=== PATIENT | male | born 1935 | race Caucasian/White ===

== ENCOUNTER 2017-03-16 21:04 | Inpatient (IN) ==
--- NOTE | 2017-03-16 21:49 | Emergency Department Note ---
Disposition Clinical Impression: On rivaroxaban therapy, Hx of bladder cancer Hematuria Qualifiers: Hematuria type: unspecified type Qualified Code(s): R31.9 - Hematuria, unspecified Disposition: Admitted As Inpatient Condition: Fair Time of Disposition: 22:35 Male Urogenital HPI - General Chief complaint: ED Urogenital-Male Stated complaint: hematuria Time Seen by Provider: 03/16/17 21:07 Source: EMS Mode of arrival: ambulatory Limitations: no limitations Nursing Notes Reviewed: Yes Vital Signs Reviewed: Yes - History of Present Illness HPI Narrative: 81-year-old transferred from the [place] currently anticoagulated on Xarelto recently started 10 days ago ofleft-sided pulmonary embolus,is currently complaining of hematuria times one day.Patient is medical histor y ofbladder cancer and carcinoma of the prostate. Denies any dysuria or pain with urination. Patient states he was started on Xarelto about 8 days ago, since that time he is noted no bleeding, sitting started noticing bright red blood is going to bathroom. Denies bleeding from elsewhere, denies any chest pain or shortness of breath currently. Pt Subjective Complaint: other (hematuria) Onset (ago): day(s) Duration: intermittent Location: penis Severity: none Quality: burning Improves with: urination new medication (Xarelto) Denies: discharge, swelling, mass, urinary retention - Related Data Home Medications Medication Instructions Recorded Confirmed Acetaminophen [Tylenol] 500 mg PO Q6HR PRN 03/16/17 03/16/17 Carboxymethylcellulose Sodium 2 drop BOTH EYES Q2H PRN 03/16/17 03/16/17 [Refresh Liquigel] Cetirizine HCl [Zyrtec] 10 mg PO DAILY 03/16/17 03/16/17 Hydrocortisone 1% CREAM [Cortaid] 1 appl TP BID 03/16/17 03/16/17 Lactobacillus Acidophilus/Fos 1 each PO DAILY 03/16/17 03/16/17 [Acidophilus Probiotic Tablet] Megestrol Acetate 20 mg PO BID 03/16/17 03/16/17 Pantoprazole Sodium [Protonix] 40 mg PO DAILY 03/16/17 03/16/17 Rivaroxaban [Xarelto] 15 mg PO BID 03/16/17 03/16/17 Saliva Substitute Combo No.3 3 - 5 spray MM Q6H 03/16/17 03/16/17 [Aquoral] Sennosides/Docusate Sodium [Senna 1 each PO BID 03/16/17 03/16/17 Plus] Allergies Allergy/AdvReac Type Severity Reaction Status Date / Time codeine Allergy Hallucinati Verified 03/16/17 21:16 ng Influenza Virus Vaccines Allergy Cough Verified 03/16/17 21:16 Pneumococcal Vaccine Allergy Cough Verified 03/16/17 21:16 All systems ED: reviewed and negative except as stated. Review of Systems: As Per HPI Constitutional: Denies: fever, chills Eyes: Denies: eye pain ENT ED: Denies: ear pain Cardiovascular: Denies: chest pain Respiratory: Denies: cough Gastrointestinal: Denies: abdominal pain, nausea Genitourinary: Reports: as per HPI, hematuria. Denies: urgency Musculoskeletal: Denies: back pain, neck pain Integumentary: Denies: rash Neurological: Denies: headache, weakness Past Medical History - Past Medical History Attestation: Yes The following information was validated with the patient. Source: patient Medical history: Reports: cancer, hyperlipidemia, pulmonary embolus - Social History Smoking Status: Former smoker Alcohol use: Reports: none Drug use: Reports: none Physical Exam Constitutional: Elderly male in no acute distress vital signs reviewed and wnl Eyes: PERRLA, sclera anicteric ENT & Mouth: MM dry Neck: normal inspection, neck is supple Resp: CTA bilaterally, no resp distress CV: RRR, no m/g/r GI: normal inspection, soft, no guarding or rigidity : normal inspection, uncircumcised Neuro: A&O3, CNII-XII grossly , intact, DRAKE Skin: on limited exam, skin intact with no rashes or lesions - General General appearance: alert, in no apparent distress Course Course Narrative: 81-year-old male with history of bladder cancer and prostate cancer presents with hematuria after recently starting Xarelto, plan is for admission to hospitalist service. Page - Reevaluation(s) Reevaluation #1: Admitted for urology evaluation, admitted to hospitalist service .[facility] accepting Time: 23:10 Vital Signs Temperature 97.7 F 03/16/17 21:07 Pulse Rate 105 03/16/17 21:07 Respiratory Rate 16 03/16/17 21:07 Blood Pressure 154/102 03/16/17 21:07 O2 Sat by Pulse Oximetry 97 03/16/17 21:07 Temperature 98.3 F 03/17/17 00:10 Pulse Rate 85 03/17/17 00:10 Respiratory Rate 16 03/17/17 00:10 Blood Pressure 127/76 03/17/17 00:10 O2 Sat by Pulse Oximetry 97 03/17/17 00:10 Oxygen Delivery Oxygen Delivery Room Air Urogenital-Male - Differential Diagnosis Likely: acute urinary retention - Medical Records Medical records reviewed: Yes I reviewed the patient's medical records. - Lab Data Lab results reviewed: Yes I reviewed the patient's lab results. Lab results narrative: White blood cell 8.9 and hemoglobin 11.7 hematocrit 35.6 platelets 545 AST 114 ALT 62 total bili 0.2 calcium 9.8 mag 2.7 sodium 138 potassium 4.7 chloride 106 bicarbonate 22 glucose 99 BUN 14 creatinine 0.9 5X Urine clear negative nitrite and negative leukocyte esterase 2 white blood cell 133 RBCs and moderate occult blood - Radiology Data Radiology results reviewed: Yes I reviewed the patient's radiology results. CT scan of abdomen and pelvis without contrast shows 4 mm nonobstructive left mid pole stone with no hydronephrosis bilaterally partially does visualized acute appearing fracture of the left posterior eighth rib with possible small left lower lobe pulmonary contusion and pleural effusion Attestation Statement - Attestation Attestation: I examined this patient and my medical decision-making was reviewed with the Resident Physician, Dr. Cuenca. I agree with the documented findings, disposition and treatment plan as described except to the extent set forth below. Patient is a 81-year-old elderly white male who is transferred to our facility from [place] for evaluation of hematuria. Patient has a history of bladder and prostate CA and 9 days ago was diagnosed with a left lower lobe PE and started on Xarelto. In the past 24 hours patient has developed gross hematuria and was seen there for evaluation. Patient has had a full laboratory workup including CAT scan of the abdomen and pelvis which showed a renal stone but no acute ureterolithiasis. No other abnormality was seen except for an incidental finding of a left eighth rib fracture with possible underlying pulmonary contusion. Patient was transferred here because they do not have urology for consultation. Patient arrives hemodynamically stable and in no acute distress on arrival. Patient denies any difficulty urinating, no passing clots, and no straining with urination. Patient denies any fevers or chills, no abdominal pain or flank pain no other associated symptoms. Patient denies any chest pain or pressure or heaviness, no shortness of breath no diaphoresis no syncope or lightheadedness. All of patient's labs and imaging results were sent with him which were all obtained earlier today. Patient did provide a urine sample for us in urine appeared pink in color but no clots or gross blood was seen. At this time we will go ahead and admit the patient for further evaluation and determination of anticoagulation. Case was discussed with the hospitalist to accept the patient for admission.
--- NOTE | 2017-03-16 23:02 | Internal Med History&Physical ---
Addendum entered and electronically signed by Carlos Leonardo DO 03/17/17 01:25: Correct Date of Encounter: 03/16/17 Original Note: <Carlos Leonardo - Last Filed: 03/17/17 01:21> Date of Encounter: 03/17/17 Time of Encounter: 23:01 Assessment and Plan (1) Hematuria Current visit: Yes Status: Acute Patient was transferred to [facility] because [place] did not have urology for consultation. Hemoglobin 11.7, hematocrit 35.6, platelets 545 Urine clear, negative nitrite, and negative leukocyte esterase, 2 white blood cell, 133 RBCs, and moderate occult blood Continue H&H q8h Urology consulted. Qualifiers: Hematuria type: idiopathic Glomerular morphologic changes: unspecified whether glomerular morphologic changes present Qualified Code(s): N02.9 - Recurrent and persistent hematuria with unspecified morphologic changes (2) Pulmonary embolism on left Current visit: Yes Status: Suspected 9 days ago was diagnosed with a left lower lobe PE and started on Xarelto. Uncertain if this is an actual PE given concurrent h/o lung contusion from rib fracture. Will obtain records and images of CTA chest from [place]. Hold anticoagulation at this time due to hematuria (3) On rivaroxaban therapy Current visit: Yes Status: Acute Patient recently started on Xarelto 9 days ago for left-sided pulmonary embolus. Hold anticoagulation at this time due to hematuria (4) Left rib fracture Current visit: Yes Status: Acute He fell and fractured his left rib a few days prior to starting anticoagulation therapy. CT shows acute appearing fracture of the left posterior eighth rib with possible small left lower lobe pulmonary contusion and pleural effusion Continue Tylenol prn pain Qualifiers: Encounter type: initial encounter Rib fracture type: single rib Fracture type: closed Qualified Code(s): S22.32XA - Fracture of one rib, left side, initial encounter for closed fracture (5) Hx of bladder cancer Current visit: Yes Status: Chronic (6) History of prostate cancer Current visit: Yes Status: Chronic (7) DVT prophylaxis Current visit: Yes Status: Acute SCDs. Hold anticoagulation at this time due to hematuria Internal Medicine - H&P: HPI Chief complaint: Blood in urine Admitted From: Home (Seen at [place]) Plans for Post Hospital Care: Home History of present illness: Mr. Taylor is a 81 year old male with a PMH of bladder cancer and prostate cancer who was recently started on Xarelto 9 days ago for left-sided pulmonary embolus. Of note, he fell and fractured his left rib a few days prior to starting anticoagulation therapy. [facility] seeing "about 2 ounces" of bright red blood in urine this morning x2. Nursing also reports seeing blood tinged sputum today. He walks with a cane and was recently discharged home from rehab. He reports last radiation treatment and bladder cauterization was in 2009. Patient denies fever, chills, CP, SOB, ad pain, N/V/D/C, dysuria, urinary retention, or need for blood transfusion in the past. Past Med Surg Social Fam HX - Past Medical History Medical history: asthma, cancer, hyperlipidemia, pulmonary embolus - Past Surgical History Surgical History: other (bladder cauterization) - Social History Smoking Status: Former smoker Alcohol use: none Drug use: none Current living situation: Home Activity Level: Uses cane/walker - Family History Mother Hx Family Cardiac Disorders: Yes ([place]) Internal Medicine - H&P: Meds Acetaminophen [Tylenol] 500 mg PO Q6HR PRN 03/16/17 [History] Carboxymethylcellulose Sodium [Refresh Liquigel] 2 drop BOTH EYES Q2H PRN [History] Cetirizine HCl [Zyrtec] 10 mg PO DAILY 03/16/17 [History] Hydrocortisone 1% CREAM [Cortaid] 1 appl TP BID 03/16/17 [History] Lactobacillus Acidophilus/Fos [Acidophilus Probiotic Tablet] 1 each PO DAILY 08/28 [History] Megestrol Acetate 20 mg PO BID 03/16/17 [History] Pantoprazole Sodium [Protonix] 40 mg PO DAILY 03/16/17 [History] Rivaroxaban [Xarelto] 15 mg PO BID 03/16/17 [History] Saliva Substitute Combo No.3 [Aquoral] 3 - 5 spray MM Q6H 03/16/17 [History] Sennosides/Docusate Sodium [Senna Plus] 1 each PO BID 03/16/17 [History] 3 Allergy/AdvReac Type Severity Reaction Status Date / Time codeine Allergy Hallucinati Verified 03/16/17 21:16 ng Influenza Virus Vaccines Allergy Cough Verified 03/16/17 21:16 Pneumococcal Vaccine Allergy Cough Verified 03/16/17 21:16 All Systems PM: A 10-system review of systems was performed and is negative for pertinent findings except as documented above in the HPI. - Constitutional Constitutional: no chills, no fatigue, no fever(s) - EENT Eyes: no change in vision Nose, mouth and throat: no nasal congestion, no sinus pressure - Cardiovascular Cardiovascular ROS IM: no chest pain, no lightheadedness, no palpitations - Respiratory Respiratory: no cough, no hemoptysis, no chest congestion - Gastrointestinal Gastrointestinal: no abdominal pain, no diarrhea, no hematemesis, no hematochezia, no melena, no nausea, no vomiting - Genitourinary Genitourinary ROS male: hematuria, urinary incontinence (occasional), no dysuria , no urinary frequency - Musculoskeletal Musculoskeletal ROS IM: no back pain, no numbness, no tingling - Integumentary Integumentary IM: no erythema, no rash - Neurological Neurological ROS: no dizziness, no numbness, no tingling - Psychiatric Psychiatric: no anxiety, no depression - Constitutional Vitals: Temp Pulse Resp BP Pulse Ox 97.7 F 105 16 154/102 97 03/16/17 21:07 03/16/17 21:07 03/16/17 21:07 03/16/17 21:07 03/16/17 21:07 General appearance: Present: cooperative, A&O X 3, pleasant, no acute distress, answers questions appropriately Exam: appears younger than stated age - Head Head exam: Present: atraumatic, normal inspection, normocephalic - Eye Eye exam: Present: EOMI, PERRL - ENT ENT exam: Present: mucous membranes moist, normal oropharynx - Neck Neck exam general surgery: Present: normal inspection, supple. Absent: tenderness - Respiratory Respiratory exam: Present: CTAB. Absent: accessory muscle use, decreased breath sounds, rales, respiratory distress, wheezes - Cardiovascular Cardiovascular exam: Present: RRR, +S1, +S2 - GI/Abdominal GI/Abdominal exam: Present: normal bowel sounds, soft, tenderness (mild suprapubic TTP). Absent: distended, firm, guarding - Additional comments: no velazquez - Extremities Exam Extremities exam: Present: warm. Absent: pedal edema, tenderness - Back Exam Back exam: Present: normal inspection. Absent: paraspinal tenderness, vertebral tenderness - Neurological Exam Neurological exam: Present: alert, oriented X3, no focal deficits, strengths equal and symetr throughout. Absent: altered, speech deficit - Psychiatric Psychiatric exam: Present: normal affect, normal mood - Skin Skin exam: Present: dry, intact, normal color, warm Internal Med - H&P Results - Labs Labs: White blood cell 8.9 and hemoglobin 11.7 hematocrit 35.6 platelets 545 AST 114 ALT 62 total bili 0.2 calcium 9.8 mag 2.7 sodium 138 potassium 4.7 chloride 106 bicarbonate 22 BUN 14 creatinine 0.9 glucose 99 Urine clear negative nitrite and negative leukocyte esterase 2 white blood cell 133 RBCs and moderate occult blood - Impressions CT scan of abdomen and pelvis without contrast shows 4 mm nonobstructive left mid pole stone with no hydronephrosis bilaterally partially does visualized acute appearing fracture of the left posterior eighth rib with possible small left lower lobe pulmonary contusion and pleural effusion <Maisha Haro - Last Filed: 03/17/17 03:42> Date of Encounter: 03/17/17 Internal Medicine - H&P: HPI History of present illness: Mr. Taylor is a 81 year old male All Systems PM: A 10-system review of systems was performed and is negative for pertinent findings except as documented above in the HPI. - Constitutional Vitals: Temp Pulse Resp BP Pulse Ox 98.3 F 85 16 127/76 97 03/17/17 00:10 03/17/17 00:10 03/17/17 00:10 03/17/17 00:10 03/17/17 00:10 - Attending Attestation I have personally performed a face to face evaluation on this patient and I discussed the assessment and plan with the Resident. I have reviewed and agree with the documented care plan. History and Exam by me shows: History of present illness: Mr. Taylor is a 81 year old male with a PMH of bladder cancer and prostate cancer who was recently started on Xarelto 9 days ago for left-sided pulmonary embolus. Of note, he fell and fractured his left rib a few days prior to starting anticoagulation therapy. He went to the [place] prior to arrival after seeing "about 2 ounces" of bright red blood in urine this morning x2. Nursing also reports seeing blood tinged sputum today. He walks with a cane and was recently discharged home from rehab. He reports last radiation treatment and bladder cauterization was in 2009. Gen: A, A, O x3 Chest : Diminished BS b/l, no crackles / rales Heart: S1 S2 + RRR No murmurs Ext: No edema / no tenderness - carrie's sign negative a/p 1. Acute gross hematuria due to Xarelto held Xarelto for now cont close monitoring Q8hr Hb /Hct UA- no sign of infection No need of abx Will consult Urology in AM 2. Recent Left side PE 3. Recent fall with Left rib fracture I am not sure wether he had real PE or it was artifact with rib fracture if he did have PE, then is it provoked or unprovoked Also not sure wether they checked for DVT in legs So for now, will obtain medical records from [place], [place] cont holding Xarelto for now
[2017-03-16] MEDS ORDERED: Naloxone 0.4 MG/ML INJ IVP PRN (23:42)
[2017-03-16] MEDS ORDERED: Ondansetron 4 MG/2 ML VIAL IVP PRN (23:42)
[2017-03-16] MEDS ORDERED: Artificial Tears SOLN 15 ML BOTTLE BOTH EYES PRN (23:47)
[2017-03-17] MEDS: 0.9 % Sodium Chloride 1,000 ML IVC SCH ×2 (00:56→11:06)
[2017-03-17 06:50] LABS: INR 2.1; Prothrombin Time 22.9 Seconds (9.4-12.1)
[2017-03-17 07:04] LABS: Alanine Aminotransferase 39 Units/L (0-55); Albumin 2.5 g/dL (3.5-5.0); Albumin/Globulin Ratio 0.5 (1.1-2.2); Alkaline Phosphatase 95 Units/L (38-126); Aspartate Amino Transferase 66 Units/L (5-34); BUN/Creatinine Ratio 18 (6-26); Bilirubin,Total 0.3 mg/dL (0.2-1.2); Blood Urea Nitrogen 15 mg/dL (8-26); Calcium 9.2 mg/dL (8.6-10.8); Carbon Dioxide 23 mEq/L (19-29); Chloride 106 mEq/L (98-109); Globulin 4.8 g/dL (2.4-3.5); Glucose 93 mg/dL (70-99); Osmolality,Calculated 287 (280-300); Potassium 4.2 mEq/L (3.5-4.5); Sodium 138 mEq/L (136-145); Total Protein 7.3 g/dL (6.0-8.3); eGFR For African Americans > 60 (> 60); eGFR For Non-African Americans > 60 (> 60)
[2017-03-17 07:11] LABS: Basophils # 0.1 K/mcL (0.0-0.2); Basophils % 0.9 %; Eosinophils # 0.7 K/mcL (0.0-0.6); Eosinophils % 9.7 %; Hematocrit 32.8 % (37.5-50.1); Hemoglobin 10.4 g/dL (12.9-16.9); Immature Granulocytes % 0.7 % (0-4); Lymphocytes # 1.9 K/mcL (0.6-4.6); Mean Corpuscular HGB Conc 31.7 g/dL (31.6-35.5); Mean Corpuscular Hemoglobin 27.1 pg (28.0-33.3); Mean Corpuscular Volume 85.4 fL (83.0-100.0); Mean Platelet Volume 9.3 fL (9.4-12.4); Monocytes # 0.8 K/mcL (0.0-1.3); Monocytes % 11.4 %; Neutrophils # 3.5 K/mcL (1.6-8.9); Platelet Count 456 K/mcL (140-400); Red Blood Count 3.84 M/mcL (4.19-5.50); Red Cell Distribution Width 13.6 % (11.5-14.5); Segmented Neutrophils % 50.3 %
[2017-03-17] MEDS: Lactobacillus 1 EACH CAP.SPRINK PO SCH (08:24)
[2017-03-17] MEDS: Loratadine 10 MG TABLET PO SCH (08:24)
[2017-03-17] MEDS: Sennosides/Docusate Sodium TABLET PO SCH ×2 (08:25→21:30)
--- NOTE | 2017-03-17 09:18 | Urology - Consult Note ---
Date of Encounter: 03/17/17 Time of Encounter: 09:15 - Assessment and Plan (1) Hematuria Current Visit: Yes Status: Acute Assessment and plan: Hematuria seems to be resolving at this time. Would recommend to confirm whether the patient truly needs to be on anticoagulation. If confirmation of pulmonary embolism is confirmed then okay to resume anticoagulation this time. Patient will need follow-up in my office for cystoscopy. We will start the process of [place] approval for this. Qualifiers: Glomerular morphologic changes: unspecified whether glomerular morphologic changes present Qualified Code(s): N02.9 - Recurrent and persistent hematuria with unspecified morphologic changes (2) History of prostate cancer Current Visit: Yes Status: Chronic Assessment and plan: Will need to obtain last PSA readings this can be done as outpatient. (3) Hx of bladder cancer Current Visit: Yes Status: Chronic Assessment and plan: Questionable history of bladder cancer. We will obtain outside pathology records when patient follows up as outpatient. Urology CN:HPI Consult date: 03/17/17 Reason for consult Urology: Gross Hematuria Requesting physician: Carlos Leonardo History of present illness: Bandar is a 81-year-old male who is admitted secondary to gross hematuria and blood-tinged sputum. Patient was recently started on anticoagulation for possible pulmonary embolism. Patient did have a fall with a fractured 8th rib and subsequent lung contusion. Patient states that he started to develop gross hematuria as well as blood-tinged sputum over the past couple days. His hematuria has resolved. Patient states that he underwent radiation therapy for a diagnosis of prostate cancer around 2009. I do not have the pathology from his prostate cancer. He states his PSAs were stable but I do not have these to review. Patient states that after his radiation therapy he developed cystitis with gross hematuria. He underwent at least one surgery to cauterize bleeding in the bladder. He then underwent hyperbaric oxygen treatment which he states resolved his hematuria. Questionable history of bladder cancer as I have no diagnosis or pathology to confirm this. Past Med Surg Social Fam HX - Past Medical History Medical history: asthma, cancer, hyperlipidemia, pulmonary embolus, other ( prostate cancer) Psychiatric history: no psych history - Past Surgical History Surgical History: other (bladder cauterization) - Social History Smoking Status: Former smoker Smokeless Tobacco Status: No Alcohol use: none Drug use: none - Family History Mother Hx Family Cardiac Disorders: Yes ([place]) Medications and Allergies Acetaminophen [Tylenol] 500 mg PO Q6HR PRN 03/16/17 [History] Carboxymethylcellulose Sodium [Refresh Liquigel] 2 drop BOTH EYES Q2H PRN [History] Cetirizine HCl [Zyrtec] 10 mg PO DAILY 03/16/17 [History] Hydrocortisone 1% CREAM [Cortaid] 1 appl TP BID 03/16/17 [History] Lactobacillus Acidophilus/Fos [Acidophilus Probiotic Tablet] 1 each PO DAILY 08/28 [History] Megestrol Acetate 20 mg PO BID 03/16/17 [History] Pantoprazole Sodium [Protonix] 40 mg PO DAILY 03/16/17 [History] Rivaroxaban [Xarelto] 15 mg PO BID 03/16/17 [History] Saliva Substitute Combo No.3 [Aquoral] 3 - 5 spray MM Q6H 03/16/17 [History] Sennosides/Docusate Sodium [Senna Plus] 1 each PO BID 03/16/17 [History] 3 Allergy/AdvReac Type Severity Reaction Status Date / Time codeine Allergy Hallucinati Verified 03/16/17 21:16 ng Influenza Virus Vaccines Allergy Cough Verified 03/16/17 21:16 Pneumococcal Vaccine Allergy Cough Verified 03/16/17 21:16 Review of Systems - Constitutional chills - EENT Nose, mouth and throat: no dizziness - Cardiovascular no chest pain - Respiratory other (blood in sputum) - Gastrointestinal no abdominal pain - Genitourinary as per HPI - Musculoskeletal no back pain - Integumentary no erythema - Neurological no confusion - Psychiatric no anxiety - Hematologic/Lymphatic no easy bleeding - Allergic/Immunologic no throat swelling Exam Initial Vital Signs Temp Pulse Resp BP Pulse Ox 97.7 F 105 16 154/102 97 03/16/17 21:07 03/16/17 21:07 03/16/17 21:07 03/16/17 21:07 03/16/17 21:07 - General physical appearance Present: well developed - ENT Present: normal nares - Neck Present: no masses - Respiratory Present: normal respiratory effort - Cardiovascular Cardiovascular exam IM: RRR - Abdomen Abdomen: Present: soft - Integumentary Present: no rash - Neurologic Present: normal coordination Urology Results - Labs 03/17/17 06:22 03/17/17 06:22 Abnormal lab results RBC 3.84 M/mcL (4.19-5.50) L 03/17/17 06:22 Hgb 10.4 g/dL (12.9-16.9) L 03/17/17 06:22 Hct 32.8 % (37.5-50.1) L 03/17/17 06:22 MCH 27.1 pg (28.0-33.3) L 03/17/17 06:22 Plt Count 456 K/mcL (140-400) H 03/17/17 06:22 MPV 9.3 fL (9.4-12.4) L 03/17/17 06:22 Eosinophils # 0.7 K/mcL (0.0-0.6) H 03/17/17 06:22 PT 22.9 Seconds (9.4-12.1) H 03/17/17 06:22 APTT 38.0 Seconds (26.0-36.0) H 03/17/17 06:22 AST 66 Units/L (5-34) H 03/17/17 06:22 Albumin 2.5 g/dL (3.5-5.0) L 03/17/17 06:22 Globulin 4.8 g/dL (2.4-3.5) H 03/17/17 06:22 Albumin/Globulin Ratio 0.5 (1.1-2.2) L 03/17/17 06:22 Diabetes panel 03/17/17 Range/Units 06:22 Sodium 138 (136-145) mEq/L Potassium 4.2 (3.5-4.5) mEq/L Chloride 106 (98-109) mEq/L Carbon Dioxide 23 (19-29) mEq/L BUN 15 (8-26) mg/dL Creatinine 0.82 (0.72-1.25) mg/dL Glucose 93 (70-99) mg/dL Calcium 9.2 (8.6-10.8) mg/dL AST 66 H (5-34) Units/L ALT 39 (0-55) Units/L Alkaline Phosphatase 95 (38-126) Units/L Albumin 2.5 L (3.5-5.0) g/dL Calcium panel 03/17/17 Range/Units 06:22 Calcium 9.2 (8.6-10.8) mg/dL Albumin 2.5 L (3.5-5.0) g/dL Pituitary panel 03/17/17 Range/Units 06:22 Sodium 138 (136-145) mEq/L Potassium 4.2 (3.5-4.5) mEq/L Chloride 106 (98-109) mEq/L Carbon Dioxide 23 (19-29) mEq/L BUN 15 (8-26) mg/dL Creatinine 0.82 (0.72-1.25) mg/dL Glucose 93 (70-99) mg/dL Calcium 9.2 (8.6-10.8) mg/dL Adrenal panel 03/17/17 Range/Units 06:22 Sodium 138 (136-145) mEq/L Potassium 4.2 (3.5-4.5) mEq/L Chloride 106 (98-109) mEq/L Carbon Dioxide 23 (19-29) mEq/L BUN 15 (8-26) mg/dL Creatinine 0.82 (0.72-1.25) mg/dL Glucose 93 (70-99) mg/dL Calcium 9.2 (8.6-10.8) mg/dL Total Bilirubin 0.3 (0.2-1.2) mg/dL AST 66 H (5-34) Units/L ALT 39 (0-55) Units/L Alkaline Phosphatase 95 (38-126) Units/L Albumin 2.5 L (3.5-5.0) g/dL All other labs normal. Consult Discharge Plan - Plan [facility] Care Provider[facility] -
[2017-03-17 13:01] LABS: Basophils # 0.1 K/mcL (0.0-0.2); Basophils % 0.8 %; Eosinophils # 0.5 K/mcL (0.0-0.6); Hemoglobin 10.5 g/dL (12.9-16.9); Immature Granulocytes % 0.6 % (0-4); Lymphocytes # 1.7 K/mcL (0.6-4.6); Lymphocytes % 20.2 %; Mean Corpuscular HGB Conc 31.8 g/dL (31.6-35.5); Mean Corpuscular Hemoglobin 27.3 pg (28.0-33.3); Mean Corpuscular Volume 85.7 fL (83.0-100.0); Mean Platelet Volume 9.1 fL (9.4-12.4); Monocytes # 0.8 K/mcL (0.0-1.3); Monocytes % 9.3 %; Neutrophils # 5.2 K/mcL (1.6-8.9); Platelet Count 445 K/mcL (140-400); Red Blood Count 3.85 M/mcL (4.19-5.50); Red Cell Distribution Width 13.6 % (11.5-14.5); Segmented Neutrophils % 63.1 %
--- NOTE | 2017-03-17 16:53 | Internal Med Progress Note ---
Date of Encounter: 03/17/17 Time of Encounter: 13:00 - Assessment and plan (1) Hematuria Current Visit: Yes Status: Acute Assessment and plan: Patient has history of prostate and bladder cancer, currently in remission according to him. He was recently started on Xarelto due to diagnosis of PE and developed an episode of gross hematuria yesterday along with some blood- tinged sputum. Anticoagulation has been held since admission. Hematuria is currently clearing up. Hemoglobin noted to be stable. Urology consult appreciated, recommend outpatient follow-up for cystoscopy. Agreeable to restarting anticoagulation if necessary. Qualifiers: Hematuria type: idiopathic Glomerular morphologic changes: unspecified whether glomerular morphologic changes present Qualified Code(s): N02.9 - Recurrent and persistent hematuria with unspecified morphologic changes (2) Pulmonary embolism Current Visit: Yes Status: Acute Assessment and plan: CT angiogram of chest report obtained from [facility] in [place], and reviewed- shows bilateral lower segmental and global for pulmonary emboli, left- sided pleural effusion and bibasal infiltrates/atelectasis-could be pneumonia or pulmonary infarcts. Patient is noted to be slightly tachycardic. We will restart anticoagulation with Xarelto. Continue to monitor hemoglobin and for signs of bleeding closely. Qualifiers: Pulmonary embolism type: other Chronicity: acute Acute cor pulmonale presence: without acute cor pulmonale Qualified Code(s): I26.99 - Other pulmonary embolism without acute cor pulmonale (3) Hx of bladder cancer Current Visit: Yes Status: Chronic (4) Left rib fracture Current Visit: Yes Status: Acute Assessment and plan: Status post mechanical fall a few days back. Pain control with when necessary oxycodone. Physical and occupational physical and occupational therapy evaluation noted, recommend placement in extended care facility. access services librarian consult. Qualifiers: Encounter type: initial encounter Rib fracture type: single rib Fracture type: closed Qualified Code(s): S22.32XA - Fracture of one rib, left side, initial encounter for closed fracture (5) History of prostate cancer Current Visit: Yes Status: Chronic - Subjective Interval history: Reports feeling well. Complains of left shoulder and arm pain. No chest pain, dyspnea, palpitations. - Constitutional Vitals: Temp Pulse Resp BP Pulse Ox 97.6 F 99 16 116/71 96 03/17/17 14:59 03/17/17 14:59 03/17/17 14:59 03/17/17 14:59 03/17/17 14:59 General appearance: Present: cooperative, A&O X 3, answers questions appropriately - Respiratory Respiratory exam: Present: decreased breath sounds (Slightly decreased at left base), CTAB. Absent: accessory muscle use, rales, rhonchi, wheezes - Cardiovascular Cardiovascular exam: Present: RRR, +S1, +S2, tachycardia. Absent: diastolic murmur, gallop, rubs, systolic murmur - GI/Abdominal GI/Abdominal exam: Present: normal bowel sounds, soft, no peritoneal signs. Absent: distended, tenderness - Extremities Exam Extremities exam: Present: full ROM, warm, radial pulses palpable and symmetrical. Absent: calf tenderness, cyanotic, pedal edema - Neurological Exam Neurological exam: Present: CN II-XII intact, oriented X3, no focal deficits. Absent: pronater drift, facial droop, speech deficit Internal Medicine: Result - Labs CBC & Chem 7: 03/17/17 12:45 03/17/17 06:22 Labs: Short CBC 03/17/17 03/17/17 Range/Units 06:22 12:45 WBC 7.0 8.3 (4.3-11.1) K/mcL Hgb 10.4 L 10.5 L (12.9-16.9) g/dL Hct 32.8 L 33.0 L (37.5-50.1) % Plt Count 456 H 445 H (140-400) K/mcL Neutrophils # 3.5 5.2 (1.6-8.9) K/mcL BMP 03/17/17 06:22 Sodium 138 Potassium 4.2 Chloride 106 Carbon Dioxide 23 BUN 15 Creatinine 0.82 Glucose 93 Calcium 9.2 Liver Function 03/17/17 Range/Units 06:22 Total Bilirubin 0.3 (0.2-1.2) mg/dL AST 66 H (5-34) Units/L ALT 39 (0-55) Units/L Alkaline Phosphatase 95 (38-126) Units/L Albumin 2.5 L (3.5-5.0) g/dL - ABG Interpretation ABG results: PT/INR, D-dimer PT 22.9 Seconds (9.4-12.1) H 03/17/17 06:22 Consult Discharge Plan - Plan [facility] Care Provider[facility] -
[2017-03-17 21:12] LABS: Basophils % 0.5 %; Eosinophils # 0.7 K/mcL (0.0-0.6); Eosinophils % 8.7 %; Hematocrit 31.9 % (37.5-50.1); Hemoglobin 10.2 g/dL (12.9-16.9); Immature Granulocytes % 0.6 % (0-4); Immature Platelets 1.9 % (1.1-6.1); Lymphocytes % 24.2 %; Mean Corpuscular Hemoglobin 27.4 pg (28.0-33.3); Mean Corpuscular Volume 85.8 fL (83.0-100.0); Mean Platelet Volume 9.1 fL (9.4-12.4); Monocytes % 11.5 %; Neutrophils # 4.6 K/mcL (1.6-8.9); Platelet Count 475 K/mcL (140-400); Red Blood Count 3.72 M/mcL (4.19-5.50); Red Cell Distribution Width 13.4 % (11.5-14.5); Segmented Neutrophils % 54.5 %
[2017-03-17] MEDS: *HR* Rivaroxaban 15 MG TABLET PO SCH (21:30)
[2017-03-18 05:04] LABS: Basophils % 0.5 %; Eosinophils # 0.7 K/mcL (0.0-0.6); Eosinophils % 9.1 %; Hematocrit 32.5 % (37.5-50.1); Hemoglobin 10.5 g/dL (12.9-16.9); Immature Granulocytes % 0.5 % (0-4); Lymphocytes # 1.8 K/mcL (0.6-4.6); Lymphocytes % 23.3 %; Mean Corpuscular HGB Conc 32.3 g/dL (31.6-35.5); Mean Corpuscular Hemoglobin 27.3 pg (28.0-33.3); Mean Corpuscular Volume 84.4 fL (83.0-100.0); Mean Platelet Volume 9.3 fL (9.4-12.4); Monocytes # 0.9 K/mcL (0.0-1.3); Monocytes % 10.8 %; Neutrophils # 4.4 K/mcL (1.6-8.9); Platelet Count 476 K/mcL (140-400); Red Blood Count 3.85 M/mcL (4.19-5.50); Red Cell Distribution Width 13.5 % (11.5-14.5); Segmented Neutrophils % 55.8 %
[2017-03-18] MEDS: Lactobacillus 1 EACH CAP.SPRINK PO SCH (09:56)
[2017-03-18] MEDS: *HR* Rivaroxaban 15 MG TABLET PO SCH (09:56)
[2017-03-18] MEDS: Sennosides/Docusate Sodium TABLET PO SCH (09:56)
[2017-03-18] MEDS: Loratadine 10 MG TABLET PO SCH (09:57)
[2017-03-18 11:27] VITALS: BP 149/83
[2017-03-18 11:49] LABS: Basophils % 0.5 %; Eosinophils # 0.6 K/mcL (0.0-0.6); Eosinophils % 6.8 %; Hematocrit 32.8 % (37.5-50.1); Hemoglobin 10.6 g/dL (12.9-16.9); Immature Granulocytes % 0.4 % (0-4); Lymphocytes # 1.7 K/mcL (0.6-4.6); Lymphocytes % 20.5 %; Mean Corpuscular HGB Conc 32.3 g/dL (31.6-35.5); Mean Corpuscular Hemoglobin 27.3 pg (28.0-33.3); Mean Corpuscular Volume 84.5 fL (83.0-100.0); Mean Platelet Volume 8.9 fL (9.4-12.4); Monocytes # 0.8 K/mcL (0.0-1.3); Monocytes % 9.3 %; Neutrophils # 5.2 K/mcL (1.6-8.9); Platelet Count 445 K/mcL (140-400); Red Blood Count 3.88 M/mcL (4.19-5.50); Red Cell Distribution Width 13.4 % (11.5-14.5); Segmented Neutrophils % 62.5 %
--- NOTE | 2017-03-18 13:41 | Discharge Summary ---
Date of Encounter: 03/18/17 Time of Encounter: 13:38 - Discharge Diagnosis (1) Hematuria Priority: Primary Status: Acute Qualifiers: Hematuria type: gross Qualified Code(s): R31.0 - Gross hematuria (2) Pulmonary embolism Priority: Primary Status: Acute Qualifiers: Pulmonary embolism type: other Chronicity: acute Acute cor pulmonale presence: without acute cor pulmonale Qualified Code(s): I26.99 - Other pulmonary embolism without acute cor pulmonale (3) Hx of bladder cancer Priority: Secondary Status: Chronic (4) Left rib fracture Priority: Primary Status: Acute Qualifiers: Encounter type: initial encounter Rib fracture type: single rib Fracture type: closed Qualified Code(s): S22.32XA - Fracture of one rib, left side, initial encounter for closed fracture (5) History of prostate cancer Priority: Secondary Status: Chronic - Discharge Medications Home Medications: Acetaminophen [Tylenol] 500 mg PO Q6HR PRN 03/16/17 [History] Carboxymethylcellulose Sodium [Refresh Liquigel] 2 drop BOTH EYES Q2H PRN [History] Cetirizine HCl [Zyrtec] 10 mg PO DAILY 03/16/17 [History] Hydrocortisone 1% CREAM [Cortaid] 1 appl TP BID 03/16/17 [History] Lactobacillus Acidophilus/Fos [Acidophilus Probiotic Tablet] 1 each PO DAILY 08/28 [History] Megestrol Acetate 20 mg PO BID 03/16/17 [History] Pantoprazole Sodium [Protonix] 40 mg PO DAILY 03/16/17 [History] Rivaroxaban [Xarelto] 15 mg PO BID 03/16/17 [History] Saliva Substitute Combo No.3 [Aquoral] 3 - 5 spray MM Q6H 03/16/17 [History] Sennosides/Docusate Sodium [Senna Plus] 1 each PO BID 03/16/17 [History] Allergies/Adverse Reactions: 3 Allergy/AdvReac Type Severity Reaction Status Date / Time codeine Allergy Hallucinati Verified 03/16/17 21:16 ng Influenza Virus Vaccines Allergy Cough Verified 03/16/17 21:16 Pneumococcal Vaccine Allergy Cough Verified 03/16/17 21:16 Date of admission: 03/16/17 22:59 [facility] care physician: [facility] Consults: 03/17/17 00:51 Consult to Physical Therapy [CONS] Routine Comment: Evaluate, develop and implement POC Reason for Consult: falls OT [Consult to Occupational Therapy] [CONS] Routine Comment: Evaluate, develop and implement POC Reason for Consult: falls 03/17/17 00:52 Consult to Urology [CONS] Routine Consulting Provider: Francine Rockwell Reason for Consult: Hematuria, h/o bladder/ prostate cancer Call Completed: No 03/17/17 13:46 Consult to Acetylene Torch Burner [CONS] Routine Reason for SW Consult: PT/OT recommends ECF Discharging clinician: Palak Chavira Anticipated date of discharge: 03/18/17 - Patient Status Disposition: Home, Self-Care Condition: Fair Functional capacity at discharge: independent ambulation Overall status at discharge: patient is progressing back to baseline - Discharge Instructions Instructions: Pulmonary Embolism (DC) Follow [facility] With: [facility] [[facility] Care Provider[facility] - 03/30/17 1:15 pm Additional Instructions: F/up with PCP at [facility] in 1-2 weeks - Diet and Activity Activity: resume usual activities as tolerated Diet: low fat, low cholesterol, low salt diet Hospital course: Mr. Taylor is a 81 year old male with history of bladder and prostate cancer, recently diagnosed with pulmonary embolism and started on anticoagulation, was admitted to our hospital with hematuria. Patient's hemoglobin remained stable and hematuria gradually resolved. He was evaluated by urology and cleared for discharge with outpatient follow-up for possible cystoscopy. Records from [facility], where the patient was admitted and diagnosed with pulmonary embolism, will reviewed. CT angiogram of chest shows bilateral lower lobar and segmental pulmonary emboli. He is being restarted on anticoagulation with Xarelto and and his hemoglobin remained stable. Physical and occupation therapy evaluation was done and recommended placement in extended care facility for continued rehabilitation, however patient declined placement and home health services, since he has enough support at home. He is otherwise medically stable for discharge. - Time Spent with Patient Total time spent providing and/or coordinating discharge services: Greater than 30 minutes (40 min) - Constitutional Vitals: Temp Pulse Resp BP Pulse Ox 97.3 F L 100 18 149/83 96 03/18/17 11:25 03/18/17 11:25 03/18/17 11:25 03/18/17 11:25 03/18/17 11:25 General appearance: Present: cooperative, A&O X 3, answers questions appropriately - Respiratory Respiratory exam: Present: CTAB. Absent: accessory muscle use, rales, rhonchi, wheezes - Cardiovascular Cardiovascular exam: Present: RRR, +S1, +S2, tachycardia. Absent: diastolic murmur, gallop, rubs, systolic murmur
== END 2017-03-18 15:06 | disposition home or self-care (01) | DRG 698 ==
LOC: EMEROO 21:04 → 3BNU 21:04 → SUATTDRO 22:59 → OBSVTOIN 22:59 → 3BNU 23:18
PROVIDERS: ADMIT Family Medicine; ATTEND Internal Medicine

== ENCOUNTER 2017-09-22 18:06 | Inpatient (IN) ==
--- NOTE | 2017-09-22 18:16 | Emergency Department Note ---
Disposition Clinical Impression: Deep vein thrombosis (DVT) of left lower extremity Qualifiers: Affected thrombotic vein of extremity: femoral Chronicity: acute Qualified Code (s): I82.412 - Acute embolism and thrombosis of left femoral vein Disposition: Admitted As Inpatient Condition: Good Time of Disposition: 19:23 Extremity Problem HPI - General Chief complaint: ED Extremity Problem,Nontraumatic Stated complaint: right LE DVT Time Seen by Provider: 09/22/17 18:13 Source: patient, EMS Mode of arrival: EMS Limitations: no limitations Nursing Notes Reviewed: Yes Vital Signs Reviewed: Yes - History of Present Illness HPI Narrative: Patient is an 82-year-old male with past medical history of previous lower extremity DVT, previous PE, Currently on xarelto for anticoagulation. [facility] due to concern for left lower extremity DVT, recommended eval by vascular for IVC filter. The patient says that he has had swelling of the left lower extremity for the past 6 or 7 months. He presented to [place] urgent care today and had ultrasounds of bilateral lower extremities. Ultrasound of the right lower showed a showed no evidence of DVT. Left leg showed evidence of left femoral, left popliteal and left posterior tibial DVT. Patient was transferred here for vascular consult for possible IVC filter consideration. Otherwise, the patient is denying any other chest pain, shortness breath, nausea, vomiting, fevers, abdominal pain, any other injuries or falls. He says that he has not missed any of his xarelto doses of anticoagulation medications. Pain Scale: 0 - Related Data Home Medications Medication Instructions Recorded Confirmed Sennosides/Docusate Sodium [Senna 1 each PO BID PRN 03/16/17 09/22/17 Plus] Acetaminophen [Tylenol] 975 mg PO Q6H PRN 09/22/17 09/22/17 Capsaicin 0.025% [Trixaicin] 1 appl TP BID PRN 09/22/17 09/22/17 Meclizine [Antivert] 12.5 mg PO Q6H PRN 09/22/17 09/22/17 Rivaroxaban [Xarelto] 20 mg PO DAILY 09/22/17 09/22/17 Allergies Allergy/AdvReac Type Severity Reaction Status Date / Time codeine Allergy Hallucinati Verified 09/22/17 19:34 ng Influenza Virus Vaccines Allergy Cough Verified 09/22/17 19:34 Pneumococcal Vaccine Allergy Cough Verified 09/22/17 19:34 All systems ED: reviewed and negative except as stated. Constitutional: Denies: fever Cardiovascular: Denies: chest pain Respiratory: Denies: dyspnea Gastrointestinal: Denies: abdominal pain, nausea, vomiting, diarrhea Genitourinary: Denies: urgency, dysuria Integumentary: Denies: rash Neurological: Denies: headache, weakness, numbness, paresthesias Past Medical History - Past Medical History Attestation: Yes The following information was validated with the patient. Source: patient Medical history: Reports: asthma, cancer, DVT, hyperlipidemia, pulmonary embolus , other Surgical history: Reports: other (bladder cauterization) Psychiatric history: Reports: no psych history - Social History Smoking Status: Former smoker Smokeless Tobacco Status: No Alcohol use: Reports: none Drug use: Reports: none Physical Exam - General Limitations: no limitations General appearance: alert, in no apparent distress - Head Head exam: atraumatic, normocephalic, normal inspection - Eye Eye exam: Present: normal appearance, PERRL, EOMI - ENT ENT exam: normal exam, normal oropharynx, mucous membranes moist - Neck Neck exam: Present: normal inspection, full ROM, trachea midline - Chest Chest inspection: Present: normal inspection, symmetric chest wall rise - Respiratory Respiratory exam: Present: normal lung sounds bilaterally - Cardiovascular Cardiovascular exam: Present: regular rate, normal rhythm, normal heart sounds - Abdominal Exam Abdominal exam: Present: soft, Non-Tender. Absent: tenderness, distention, guarding, rebound, rigidity - Extremities Exam Extremities exam: Present: other (Significant swelling of the left calf compared to the right lower extremity, tenderness to palpation of left calf; good perfusion distally, no discoloration toes, no signs of ulceration.) - Neurological Exam Neurological exam: Present: alert, oriented X3. Absent: motor sensory deficit - Psychiatric Psychiatric exam: Present: normal affect, normal mood - Skin Skin exam: Present: warm, dry, intact, normal color Course Course Narrative: Oxygen was within normal limits on room air, 97%. Patient has no chest pain or shortness of breath, no further workup for his PE deemed necessary at this time. Patient's left lower extremity femoral, popliteal, posterior tibial DVT despite being on xarelto daily without any missed doses. I contacted Dr. Alaniz with vascular and he recommended that we admit the patient on a heparin drip. It is a recommended that the patient receive hematology/oncology consult once the patient is admitted to discuss further DVT despite anticoagulation. Patient ready had basic blood work drawn at outside facility. Basic blood work on CBC shows a hemoglobin of 10.9, near baseline for the patient. BMP shows no major abnormalities, creatinine 0.95, GFR greater than 60. AST mildly elevated at 64. 19:[address] Pizarro, patient started on heparin drip. Vital Signs Temperature 0 F L 09/22/17 18:10 Pulse Rate 0 09/22/17 18:10 Respiratory Rate 0 09/22/17 18:10 Blood Pressure 0/0 09/22/17 18:10 O2 Sat by Pulse Oximetry 0 09/22/17 18:10 Temperature 97.7 F 09/22/17 22:40 Pulse Rate 90 09/22/17 22:40 Respiratory Rate 18 09/22/17 22:40 Blood Pressure 163/90 09/22/17 22:40 O2 Sat by Pulse Oximetry 98 09/22/17 22:40 Oxygen Delivery Oxygen Delivery Room Air Extremity Problem, Nontraumati - MDM Narrative Medical decision making narrative: Oxygen was within normal limits on room air, 97%. Patient has no chest pain or shortness of breath, no further workup for his PE deemed necessary at this time. Patient's left lower extremity femoral, popliteal, posterior tibial DVT despite being on xarelto daily without any missed doses. I contacted Dr. Alaniz with vascular and he recommended that we admit the patient on a heparin drip. It is a recommended that the patient receive hematology/oncology consult once the patient is admitted to discuss further DVT despite anticoagulation. Patient ready had basic blood work drawn at outside facility. Basic blood work on CBC shows a hemoglobin of 10.9, near baseline for the patient. BMP shows no major abnormalities, creatinine 0.95, GFR greater than 60. AST mildly elevated at 64. 19:[address] Pizarro, patient started on heparin drip. - Medical Records Medical records reviewed: Yes I reviewed the patient's medical records. - Lab Data Lab results reviewed: Yes I reviewed the patient's lab results. Result diagrams: 09/22/17 18:48 Lab Results 09/22/17 09/22/17 Range/Units 18:48 18:48 WBC 7.1 (4.3-11.1) K/mcL RBC 3.74 L (4.19-5.50) M/mcL Hgb 10.7 L (12.9-16.9) g/dL Hct 33.1 L (37.5-50.1) % MCV 88.5 (83.0-100.0) fL MCH 28.6 (28.0-33.3) pg MCHC 32.3 (31.6-35.5) g/dL RDW 14.6 H (11.5-14.5) % Plt Count 277 (140-400) K/mcL MPV 9.5 (9.4-12.4) fL PT 17.6 H (9.4-12.1) Seconds INR 1.6 APTT 34.0 (26.0-36.0) Seconds - Radiology Data Radiology results reviewed: Yes I reviewed the patient's radiology results. [email or web address] - Laura Situation: Demographics, MOA Background: Presenting Complaint, Relevant PMH, Meds, & Allergies Assessment: Vital Signs, Course and respsone to treatment, Exam Concerns, Patient/Family Expectation, Pertinant Lab Results Recommendation: Barrier(s) to disposition, Recommendation based on pending studies, treatments, or consults [email or web address] Report Given to: Dr. Juarez Sanchez Repor Time: 19:24 Attestation Statement - Attestation Attestation: I examined this patient and my medical decision-making was reviewed with the Resident Physician. I agree with the documented findings, disposition and treatment plan as described except to the extent set forth below. Findings consistent with DVT in the setting of current anticoagulation use. Discussed case with on-call vascular surgeon, will heparinized, admitted for hypercoagulable workup and possible need for filter placement.
[2017-09-22] MEDS ORDERED: *HR* Heparin 5,000 UNIT/ML VIAL IVP ONE (18:34)
[2017-09-22] MEDS ORDERED: *HR* Heparin 5,000 UNIT/ML VIAL IVP PRN ×2 (18:34)
[2017-09-22 19:06] LABS: INR 1.6; Prothrombin Time 17.6 Seconds (9.4-12.1)
[2017-09-22 19:16] LABS: Hematocrit 33.1 % (37.5-50.1); Hemoglobin 10.7 g/dL (12.9-16.9); Mean Corpuscular HGB Conc 32.3 g/dL (31.6-35.5); Mean Corpuscular Hemoglobin 28.6 pg (28.0-33.3); Mean Corpuscular Volume 88.5 fL (83.0-100.0); Mean Platelet Volume 9.5 fL (9.4-12.4); Platelet Count 277 K/mcL (140-400); Red Blood Count 3.74 M/mcL (4.19-5.50); Red Cell Distribution Width 14.6 % (11.5-14.5)
[2017-09-22] MEDS: Heparin 25,000 UNIT/500 ML D5W 25,000 UNIT/500 ML BAG IVC SCH (20:27)
[2017-09-22] MEDS ORDERED: Naloxone 0.4 MG/ML INJ IVP PRN (21:12)
[2017-09-22] MEDS ORDERED: Ketorolac 15 MG/ML VIAL IVP PRN (21:18)
[2017-09-22] MEDS: Sennosides/Docusate Sodium TABLET PO PRN (23:41)
--- NOTE | 2017-09-22 23:43 | Internal Med History&Physical ---
Date of Encounter: 09/22/17 Time of Encounter: 20:00 Internal Medicine - H&P: HPI Chief complaint: Bilateral leg swelling and pain Admitted From: Home Plans for Post Hospital Care: Home History of present illness: Mr. Taylor is a 82 year old male transferred from [place] to our emergency room for bilateral leg swelling and pain for about 5 weeks. Past medical history is significant for vertigo, sinusitis, on chronic xarelto for PE since 8 months ago , bladder cancer, prostate cancer. Patient said he has a fall 5 weeks ago which caused left-sided rib fracture. Patient denies immobilization. Patient has bilateral leg swelling and calf pain. He went to see in [place] [facility]. He was ordered bilateral venous Doppler and shows left side DVT. Patient said he started xarelto since 8 months ago because of "left rib cage clotting" (old record on last adm shows PE) . Patient denies shortness of breath or chest pain this time. He was transferred to our hospital for possible IVC filter because he developed DVT although on anticoagulation. Vascular surgeon counseled by ER doctor, recommend to start heparin drip and will see patient tomorrow. Vascular surgeon also recommend oncology consult for further management. Patient was admitted for acute left LE DVT. Past Med Surg Social Fam HX - Past Medical History Medical history: asthma, cancer, DVT, hyperlipidemia, pulmonary embolus, other Psychiatric history: no psych history - Past Surgical History Surgical History: other (bladder cauterization) - Social History Smoking Status: Former smoker Smokeless Tobacco Status: No Alcohol use: none Drug use: none - Family History Mother Hx Family Cardiac Disorders: Yes ([place]) Internal Medicine - H&P: Meds Sennosides/Docusate Sodium [Senna Plus] 1 each PO BID PRN 03/16/17 [History] Acetaminophen [Tylenol] 975 mg PO Q6H PRN 09/22/17 [History] Capsaicin 0.025% [Trixaicin] 1 appl TP BID PRN 09/22/17 [History] Meclizine [Antivert] 12.5 mg PO Q6H PRN 09/22/17 [History] Rivaroxaban [Xarelto] 20 mg PO DAILY 09/22/17 [History] 3 Allergy/AdvReac Type Severity Reaction Status Date / Time codeine Allergy Hallucinati Verified 09/22/17 19:34 ng Influenza Virus Vaccines Allergy Cough Verified 09/22/17 19:34 Pneumococcal Vaccine Allergy Cough Verified 09/22/17 19:34 All Systems PM: A 10-system review of systems was performed and is negative for pertinent findings except as documented above in the HPI. - Constitutional Vitals: Temp Pulse Resp BP Pulse Ox 97.7 F 90 18 163/90 98 09/22/17 22:40 09/22/17 22:40 09/22/17 22:40 09/22/17 22:40 09/22/17 22:40 General appearance: Present: A&O X 3, no acute distress, answers questions appropriately - Head Head exam: Present: atraumatic, normocephalic - Eye Eye exam: Present: PERRL, conjuntiva pink, sclera anicteric Pupils: Present: PERRL - Neck Neck exam general surgery: Present: supple, trachea midline. Absent: lymphadenopathy - Respiratory Respiratory exam: Present: CTAB. Absent: accessory muscle use, rales, rhonchi, wheezes - Cardiovascular Cardiovascular exam: Present: RRR, +S1, +S2. Absent: diastolic murmur, gallop, rubs, systolic murmur - GI/Abdominal GI/Abdominal exam: Present: normal bowel sounds, soft, no peritoneal signs. Absent: distended, tenderness - Extremities Exam Extremities exam: Present: calf tenderness (Bilaterally), pedal edema ( Bilaterally), warm, radial pulses palpable and symmetrical. Absent: cyanotic - Neurological Exam Neurological exam: Present: CN II-XII intact, oriented X3, no focal deficits. Absent: pronater drift, facial droop, speech deficit - Skin Skin exam: Present: dry, intact Internal Med - H&P Results - Labs CBC & Chem 7: 09/22/17 18:48 - Assessment and plan (1) Deep vein thrombosis (DVT) of left lower extremity Current Visit: Yes Status: Acute Assessment and plan: US Doppler in the shows left side acute DVT. Patient is on anticoagulation with xarelto. - Place patient on heparin drip - Consult vascular surgery and oncology for further management Qualifiers: Affected thrombotic vein of extremity: femoral Chronicity: acute Qualified Code(s): I82.412 - Acute embolism and thrombosis of left femoral vein (2) DVT prophylaxis Current Visit: No Status: Acute Assessment and plan: On heparin drip (3) On rivaroxaban therapy Current Visit: No Status: Acute Assessment and plan: For previous PE (4) Pulmonary embolism Current Visit: No Status: Acute Assessment and plan: Pt was placed on xarelto Qualifiers: Pulmonary embolism type: other Chronicity: chronic Acute cor pulmonale presence: without acute cor pulmonale Qualified Code(s): 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
[2017-09-23 02:56] LABS: Basophils # 0.1 K/mcL (0.0-0.2); Basophils % 0.7 %; Eosinophils # 0.4 K/mcL (0.0-0.6); Eosinophils % 5.7 %; Hematocrit 27.7 % (37.5-50.1); Hemoglobin 9.1 g/dL (12.9-16.9); Immature Granulocytes % 0.4 % (0-4); Lymphocytes # 1.8 K/mcL (0.6-4.6); Lymphocytes % 26.5 %; Mean Corpuscular HGB Conc 32.9 g/dL (31.6-35.5); Mean Corpuscular Hemoglobin 28.8 pg (28.0-33.3); Mean Corpuscular Volume 87.7 fL (83.0-100.0); Mean Platelet Volume 9.6 fL (9.4-12.4); Monocytes # 0.9 K/mcL (0.0-1.3); Monocytes % 13.4 %; Neutrophils # 3.6 K/mcL (1.6-8.9); Platelet Count 238 K/mcL (140-400); Red Blood Count 3.16 M/mcL (4.19-5.50); Red Cell Distribution Width 14.5 % (11.5-14.5); Segmented Neutrophils % 53.3 %
[2017-09-23 03:14] LABS: BUN/Creatinine Ratio 23 (6-26); Blood Urea Nitrogen 21 mg/dL (8-23); Calcium 8.7 mg/dL (8.6-10.3); Carbon Dioxide 23 mEq/L (23-29); Chloride 110 mEq/L (98-107); Glucose 109 mg/dL (70-105); Osmolality,Calculated 290 (280-300); Potassium 4.2 mEq/L (3.5-5.1); Sodium 138 mEq/L (136-145); eGFR For African Americans > 60 (> 60); eGFR For Non-African Americans > 60 (> 60)
[2017-09-23 13:42] LABS: INR 1.3; Prothrombin Time 13.6 Seconds (9.4-12.1)
--- NOTE | 2017-09-23 14:57 | Vascular/Endovasc Consult Note ---
Date of Encounter: 09/23/17 Time of Encounter: 08:00 Assessment and Plan (1) On rivaroxaban therapy Current Visit: Yes Status: Acute Patient demonstrates failure of Xarleto therapy for DVT treatment with new onset left lower extremity femoral popliteal DVT. Because of the failure of anticoagulation the patient was recommended to undergo IVC filter placement. In addition it was suggested that the patient be seen by hematology for recommendations as to the preferred method of anticoagulation post-IVC filter placement. The patient was placed on IV heparin beginning last night at my recommendation. (2) Pulmonary embolism on left Current Visit: No Status: Suspected History of previous pulmonary embolism (3) Deep vein thrombosis (DVT) of left lower extremity Current Visit: Yes Status: Acute New-onset left lower extremity DVT despite ongoing Xarleto therapy. Qualifiers: Affected thrombotic vein of extremity: femoral Chronicity: acute Qualified Code(s): I82.412 - Acute embolism and thrombosis of left femoral vein - History of Present Illness Consult date: 09/23/17 Consult reason: Left lower extremity acute DVT on Xarleto therapy Chief complaint: Left lower extremity swelling History of present illness: Mr. Taylor is a 82 year old male Who was admitted via the ER last night. He was sent over from the [facility]. The patient had left lower extremity swelling. A duplex scan was performed that the [facility] which demonstrated an acute femoral popliteal DVT. Patient was diagnosed as having a right lower extremity DVT some months ago as well as a left ulnar embolism. He was prescribed several toe. On review with the patient he insists that he has been taking his Xarleto on a daily basis as prescribed. He denies missing a day of the Xarleto therapy. Because of this the patient was asked to be seen by vascular surgery for failure of anticoagulation for an IVC filter placement. Past Med Surg Social Fam HX - Past Medical History Medical history: asthma, cancer, DVT, hyperlipidemia, pulmonary embolus, other Psychiatric history: no psych history - Past Surgical History Surgical History: other (bladder cauterization) - Social History Smoking Status: Former smoker Smokeless Tobacco Status: No Alcohol use: none Drug use: none - Family History Mother Hx Family Cardiac Disorders: Yes ([place]) Medications and Allergies Sennosides/Docusate Sodium [Senna Plus] 1 each PO BID PRN 03/16/17 [History] Acetaminophen [Tylenol] 975 mg PO Q6H PRN 09/22/17 [History] Capsaicin 0.025% [Trixaicin] 1 appl TP BID PRN 09/22/17 [History] Meclizine [Antivert] 12.5 mg PO Q6H PRN 09/22/17 [History] Rivaroxaban [Xarelto] 20 mg PO DAILY 09/22/17 [History] 3 Allergy/AdvReac Type Severity Reaction Status Date / Time codeine Allergy Hallucinati Verified 09/22/17 19:34 ng Influenza Virus Vaccines Allergy Cough Verified 09/22/17 19:34 Pneumococcal Vaccine Allergy Cough Verified 09/22/17 19:34 All Systems Review: The remainder of the systems were reviewed and are negative Exam Vital Signs, Last 4 Hours Temp Pulse Resp BP Pulse Ox 09/23/17 10:55 97.8 F 76 17 137/76 96 General: Present: Conversant, No Apparent Distress HEENT: Present: Atraumatic Neck: Absent: JVD, Midline deformity, Tracheal deviation Cardiac: Present: Reg Rate and Rhythm, Normal S1 and S2 Lungs: Present: Decreased breath sounds Neuro: Present: Alert and responsive, No focal deficits noted, Cranial nerves grossly intact Abdomen: Present: Soft, Non-tender. Absent: Masses Vascular: Present: Normal capillary refill, Pulse, normal, Edema (Patient has mild edema bilaterally.), Other (Patient has tenderness to manipulation of the calf muscles more so on the left side than on the right. There are no findings of phlegmasia.). Absent: Bruit, Clubbing, Cyanosis Skin: Present: No rashes noted on visualized skin Consult Discharge Plan - Plan [facility]errals: [facility] [Primary Care Provider] -
[2017-09-23] MEDS ORDERED: *HR* Heparin 10,000 UNIT/10 ML VIAL ONE (15:03)
[2017-09-23] MEDS ORDERED: 0.9 % Sodium Chloride 1,000 ML ONE ×2 (15:03→15:48)
[2017-09-23] MEDS ORDERED: Isovue-300 150 ML INFUS..BTL IV ONE (15:03)
[2017-09-23] MEDS ORDERED: Heparin 1,000 UNITS/500 mL 500 ML ONE (15:03)
--- NOTE | 2017-09-23 15:50 | Pre-Sedation Evaluation ---
Pre-sedation evaluation - Pre-sedation checklist Date of procedure: 09/23/17 Procedure: IVC filter placement Recent Vitals: Last Vital Signs Temp 97.8 F 09/23/17 10:55 Pulse 76 09/23/17 10:55 Resp 17 09/23/17 10:55 BP 137/76 09/23/17 10:55 Pulse Ox 96 09/23/17 10:55 H&P (including ROS) documented in medical record: Yes Previous reaction to sedatives/anesthetics: No Dietary Status: NPO after Midnight Dentition: No loose teeth or bridges ASA Classification *see protocol: CLASS III-Severe systemic disease Plan of Care: Pt appropriate candidate for procedure/moderate/conscious sedation , Risks/benefits of procedure/sedation discussed w/ patient/family
[2017-09-23] MEDS ORDERED: *HR* FentaNYL (PF) 100 MCG/2 ML VIAL ONE (15:53)
[2017-09-23] MEDS ORDERED: *HR* Midazolam HCl 2 MG/2 ML VIAL ONE (15:53)
--- NOTE | 2017-09-23 16:16 | Procedure Note ---
Date of procedure: 09/23/17 Pre-op diagnosis: Acute DVT on Xarelto Therapy Post-op diagnosis: same Procedure: Inferior Vena Cavogram [place] Celect IVC Filter Placement Anesthesia: MAC Surgeon: Eliseo Alaniz Was there an certified pathology assistant present: No Estimated blood loss (cc): 0 Specimen: 0 Condition: stable Disposition: floor
--- NOTE | 2017-09-23 16:36 | Invasive Diagnostic Lab Proc ---
Name: Bandar Taylor Date of Study: 09/23/2017 Date: 1935 Ht: 178.0 in Medical Record#: [id number] Age: 82 Wt: 80.4 lb Gender: Male BSA: 1.98 Order #: [id number] BMI: 25.38 Physicians Performing MD: Eliseo Alaniz MD, FACS Referring MD: Referring MD: Staff Name Position Time In Luis Fernando Maldonado RT (R) Scrub Kaycee Maldonado RT (R) Monitor Marcos Hairston RN Wireless Sales Expert MiguelLonnie street RN Wireless Sales Expert Indications DVT, Unilateral Procedures Performed IVC FILTER PLACEMENT Pre-Procedure Checklist Informed consent is complete signed and on chart. H&P is on chart. ID band is on and ID verified with patient. Patient NPO for procedure The procedure was described for the patient and questions were answered. Blood Pressure: 175/92 ECG is on chart. Plan of Care Patient will tolerate the procedure without complications. Adequate level of comfort will be maintained. Hemodynamics will remain stable Patient will recover from procedure without complications. Respiratory function will be maintained. Cardiac rhythm will remain stable. Patient temperature will be maintained. Patient and/or family have verbalized understanding of the procedure. Patient Education Chief Complaint/Reason for Test: IVC filter Developmental Category: Geriatric (65+ years) Learning Barriers: None Education Needs: Procedure Education Method: Verbal Information Taught: IVC filter Educational Evaluation: Able to repeat information Intravenous Access Time IV Size Location DC'd Fluid/Drip Rate Units RN 15:56 20g 1 /" Patent On Arrival Lt Antecubital 0.9NaCl 25 ml/hr Marcos Hairston RN Allergies Influenza Virus Vaccines codeine Pneumococcal Vaccine Vital Signs Time BP Systolic BP Diastolic HR O2 Sats ASA 03:50 PM 03:51 PM 04:06 PM 03:54 PM 188 110 77 97 03:58 PM 175 92 77 98 04:03 PM 163 84 74 97 04:07 PM 155 82 72 96 04:12 PM 163 91 77 97 04:17 PM 157 91 72 98 04:22 PM 173 98 71 99 Procedure Medications Time Medication Dose Units Method Route 03:51 PM Oxygen 2 L/min nasal cannula 03:56 PM Versed 1 mg Intravenous 03:56 PM Fentanyl 25 mcg Intravenous 04:00 PM Lidocaine 2% 6 ml Subcutaneous ASA Classification: CLASS III- Severe systemic disease (i.e. prior AMI, diabetes with vascular complications, morbid obesity) Ariana Score Preprocedure Postprocedure Activity 2- Moves 4 extremities sustained head lift Activity 2- Moves 4 extremities sustained head lift Circulation 2- SBP +/= 20 points of pre-anesthetic level Circulation 2- SBP +/= 20 points of pre-anesthetic level Consciousness 2- Awake and alert oriented x 3 Consciousness 2- Awake and alert oriented x 3 O2 Saturation 2- Able to maintain O2 satruation of 92% on room air O2 Saturation 2- Able to maintain O2 satruation of 92% on room air Respiratory 2- Able to deep breathe and cough well Respiratory 2- Able to deep breathe and cough well Total Score 10 Total Score 10 Contrast: Isovue 300- 150ml Fluoro Dose: 83 mGy Procedure Log Time Note Entered By 03:50 PM Pt arrived to lab analyst 1 at 15:50 twilson 03:50 PM Physician arrived 15:50 twilson 03:50 PM Meet and greet completed twilson 03:50 PM Sign in performed according to hospital policy. twilson :50 PM Procedure start 15:50 twilson 03:50 PM Luis Fernando Maldonado RT (R) Position: Scrub Time in: 15:50 twilson 03:50 PM Kaycee Maldonado RT (R) Position: Monitor Time in: 15:50 twilson 03:50 PM Marcos Hairsotn RN Position: Wireless Sales Expert Time in: 15:50 twilson 03:50 PM Time: 15:50 Is patient comfortable and pain free?: Yes twilson :51 PM Time: 15:50LOC: 5 = Fully awake and oriented or at pre-proc level twilson 03:51 PM Patient charges- Angio tray pack, Pulse Oximetry and ACIST tubing and transducer twilson :51 PM 15:51 Oxygen at 2 L/min per nasal cannula by Marcos Hairston RN twilson 03:53 PM ASA Class CLASS III- Severe systemic disease (i.e. prior AMI, diabetes with vascular complications, morbid obesity) twilson 03:56 PM 15:56 Versed 1 mg Intravenous Given by Marcos Hairston RN twilson 03:56 PM 15:56 Fentanyl 25 mcg Intravenous Given by Marcos Hairston RN twilson 04:00 PM Time out perfomed twilson 04:00 PM 16:00 6 ml Lidocaine 2% to right groin Subcutaneous Given By Eliseo Alaniz MD, FACS twilson 04:02 PM Ultrasound, Sonosite, utilized to obtain vascular access twilson 04:04 PM Patient Charges- Cook Celect IVC Filter femoral LOT #[id number],Tray Pack and Pulse Oximetry. twilson 04:04 PM Access obtain and IVC Filter sheath inserted Rt Femoral vein. tw: PM Time: 15:51LOC: 4 = Oriented but drowsy twilson :06 PM Time: 15:50 Is patient comfortable and pain free?: Yes twilson :06 PM 4ml contrast hand injection by Dr. Alaniz. twilson 04:06 PM Inferiorvenacavagram performed. twilson 04:07 PM IVC Filter inserted into the inferior vena cava twilson 04:08 PM IVC Filter deployed into the inferior vena cava twilson : PM 4ml contrast hand injection by Dr. Alaniz. twilson 04:09 PM Procedure completed at 16:09 twilson 04:10 PM Sign Out completed: Radiation Dose 82.59 mGy Fluoro Time: 1.0 minutes. Isovue 300- 150ml contrast ml given by Eliseo Alaniz MD, FACS. Complications: None. Confirmed administered medications:Yes twilson 04:10 PM Isovue 300- 150ml,1 bottle(s) used. twilson 04:11 PM Venous sheath pulled using manual compression for 15 minutes by Luis Fernando Maldonado RT (R) twilson 04:12 PM Estimated Blood Loss: minimal twilson 04:13 PM Post Blood Pressure: 163/91 twilson 04:15 PM 16:15 Post Pulses: Bilateral DP 2+. twilson 04:15 PM 16:15 Post Pulses: Bilateral PT 1+. twilson 04:15 PM Information taught: IVC filter twilson 04:15 PM Education needs: Procedure, Plan of Care, and Responsibilities of Patient in Care twilson 04:16 PM Learning barriers: None twilson 04:16 PM Education methods: Verbal twilson 04:16 PM Education evaluation: Able to repeat information twilson 04:16 PM Patient pain level 0/10 twilson 04:16 PM No family present at this time. twilson 04:19 PM Report given to Renzo PÉREZ. Pt taken to [facility], Room # 28 16:19 twilson :21 PM Time: 16:06 Is patient comfortable and pain free?: Yes twilson :21 PM Time: 16:06LOC: 4 = Oriented but drowsy twilson 04:24 PM Pt will be taken to E Room# 28 twilson 03:43 PM PVIStat 03:51 PM Recorded ECG: HR=91 Condition=Condition 1 03:51 PM Vitals capture started with the following parameters, Patient=Adult, Interval=5 min, Initial Cynwfagh=806 mmHg, Deflation Rate=3 mmHg, Cuff placed on Right Arm 03:54 PM HR=77 bpm, BKNR=331/110 mmhg, SpO2=97.0 % 03:57 PM Recorded ECG: HR=84 Condition=Condition 1 03:58 PM HR=77 bpm, XIPB=293/92 mmhg, SpO2=98.0 %, Resp=24 B/min 04:03 PM HR=74 bpm, TSBT=845/84 mmhg, SpO2=97.0 %, Resp=15 B/min 04:07 PM HR=72 bpm, UJJM=791/82 mmhg, SpO2=96.0 %, Resp=18 B/min 04:12 PM HR=77 bpm, BMJG=499/91 mmhg, SpO2=97.0 %, Resp=11 B/min 04:17 PM HR=72 bpm, MXBG=823/91 mmhg, SpO2=98.0 %, Resp=12 B/min 04:22 PM HR=71 bpm, AYBA=083/98 mmhg, SpO2=99.0 %, Resp=15 B/min 04:26 PM Site status No bleeding/hematoma - Rt Groin as reported by Luis Fernando Maldonado RT (R) at 16:26 twilson 04:26 PM Opsite applied twilson 04:26 PM Patient out of room 16:26 twilson Post Procedure Information Blood Pressure: 163/91 mmHg Post procedure instructions given Report Given To: Kaycee Hammond Checks Time Location Status Staff Sheath In? Note 4:26:00 PM Rt Groin No bleeding/hematoma Luis Fernando Maldonado RT (R) Pulses Time Site Pre Procedure Post Procedure Note 09/23/2017 3:56:00 PM Bilateral PT 1+ 09/23/2017 3:56:00 PM Bilateral DP 2+ 09/23/2017 3:56:00 PM Bilateral radial 2+ 4:15:00 PM Bilateral DP 2+ 4:15:00 PM Bilateral PT 1+ Updated by RT Dawn (R) on 09/23/2017 4:27:54 PM electronically signed on 09/23/2017 4:28:32 PM with status of Final
--- NOTE | 2017-09-23 17:55 | Internal Med Progress Note ---
Date of Encounter: 09/23/17 Time of Encounter: 11:00 - Assessment and plan (1) Deep vein thrombosis (DVT) of left lower extremity Current Visit: Yes Status: Acute Assessment and plan: US Doppler in the shows left side acute DVT. Patient is on anticoagulation with xarelto. 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 (3) On rivaroxaban therapy Current Visit: Yes Status: Acute Assessment and plan: Patient was started on medication due to prior PE (4) Hx of bladder cancer Current Visit: No Status: Chronic Assessment and plan: Continue outpatient follow-up (5) History of prostate cancer Current Visit: No Status: Chronic Assessment and plan: Cont outpatient follow-up (6) DVT prophylaxis Current Visit: No Status: Acute Assessment and plan: On heparin drip - Time Spent With Patient Total time spent is greater than 50% in coordination of care (as documented) at patient's floor/unit and/or counseling patient: - Subjective Interval history: Patient with left extremity DVT for IVC placement this afternoon - Constitutional Vitals: Temp Pulse Resp BP Pulse Ox 98 F 67 12 165/86 99 09/23/17 16:44 09/23/17 17:45 09/23/17 16:48 09/23/17 17:45 09/23/17 16:48 General appearance: Present: A&O X 3, no acute distress, answers questions appropriately - Respiratory Respiratory exam: Present: CTAB. Absent: accessory muscle use, rales, rhonchi, wheezes - Cardiovascular Cardiovascular exam: Present: RRR, +S1, +S2. Absent: diastolic murmur, gallop, rubs, systolic murmur Internal Medicine: Result - Labs CBC & Chem 7: 09/23/17 02:33 09/23/17 02:33 - ABG Interpretation ABG results: PT/INR, D-dimer PT 13.6 Seconds (9.4-12.1) H 09/23/17 13:11 Consult Discharge Plan - Plan [facility]errals: [facility] [Primary Care Provider] -
[2017-09-23] MEDS: Sennosides/Docusate Sodium TABLET PO PRN (21:56)
[2017-09-23] MEDS: Acetaminophen 325 MG TABLET PO PRN (21:56)
[2017-09-23] MEDS: Heparin 25,000 UNIT/500 ML D5W 25,000 UNIT/500 ML BAG IVC SCH (22:01)
[2017-09-24 10:06] LABS: Basophils % 0.7 %; Eosinophils # 0.4 K/mcL (0.0-0.6); Eosinophils % 6.4 %; Immature Granulocytes % 0.2 % (0-4); Lymphocytes % 33.4 %; Mean Corpuscular HGB Conc 32.7 g/dL (31.6-35.5); Mean Corpuscular Hemoglobin 28.7 pg (28.0-33.3); Mean Corpuscular Volume 87.8 fL (83.0-100.0); Mean Platelet Volume 9.3 fL (9.4-12.4); Monocytes # 0.7 K/mcL (0.0-1.3); Monocytes % 12.5 %; Neutrophils # 2.8 K/mcL (1.6-8.9); Platelet Count 281 K/mcL (140-400); Red Blood Count 3.76 M/mcL (4.19-5.50); Red Cell Distribution Width 14.3 % (11.5-14.5); Segmented Neutrophils % 46.8 %
[2017-09-24 10:07] LABS: Hemoglobin 10.8 g/dL (12.9-16.9)
[2017-09-24 10:24] LABS: BUN/Creatinine Ratio 19 (6-26); Blood Urea Nitrogen 18 mg/dL (8-23); Calcium 9.1 mg/dL (8.6-10.3); Carbon Dioxide 24 mEq/L (23-29); Chloride 106 mEq/L (98-107); Glucose 128 mg/dL (70-105); Osmolality,Calculated 288 (280-300); Potassium 3.5 mEq/L (3.5-5.1); Sodium 137 mEq/L (136-145); eGFR For African Americans > 60 (> 60); eGFR For Non-African Americans > 60 (> 60)
--- NOTE | 2017-09-24 14:51 | Oncology Inp Consult Note ---
Date of Encounter: 09/24/17 Time of Encounter: 14:51 Assessment and Plan (1) Deep vein thrombosis (DVT) of left lower extremity Status: Acute Assessment and plan: History detailed in history of present illness with recent bilateral venous Doppler revealed acute DVT in the left femoral, popliteal and posterior tibial veins. ER consulted vascular surgery for IVC filter which was placed on 2017. Hematology consulted for further anticoagulation recommendations. Patient has failed Xarelto therapy with acute DVT while on Xarelto. Patients kidney function is normal. Qualifiers: Affected thrombotic vein of extremity: unspecified vein of extremity Chronicity: acute Qualified Code(s): I82.402 - Acute embolism and thrombosis of unspecified deep veins of left lower extremity (2) History of prostate cancer Status: Chronic Assessment and plan: Details of history unclear as patient is a very poor historian. Patient does not appears to follow urology at this time. He was seen by Dr. Salas while inpatient in March for hematuria, cystoscopy was recommended, it does not appear that patient had followed up following this. He currently denies hematuria, dysuria or abdominal pain, he does report urinary frequency. Would recommend he be reestablished with Urology on outpatient basis for further surveillance. - Data of Consult Patient: new to practice Consult date: 09/24/17 Requesting Physician: Dwaine Rosario Primary Care Provider: ESTEFANY [facility] - Consult Narrative Reason for consult: DVT, s/p IVC History of present illness: Mr. Taylor is a 82 year old male with past medical history obtained from chart review of prostate cancer, bladder cancer, PE, hematuria and history of falls. Patient is quite a poor historian making history gathering very difficult. From chart review he appears to have had a PE in March 2017 and has been on Xarelto since this time. He reports he has been taking this medication faithfully. He presented to the [facility] on 09/22/2017 with complaint of bilateral lower extremity edema with associated pain. Lower extremity venous Doppler performed at the [facility] revealed acute DVT involving the left femoral , popliteal and posterior tibial vein. He was then transferred to [facility] for further workup and management. ER consult of vascular surgery for IVC filter placement for failed Xarelto therapy. IVC filter placed on 09/23/2017. Following this hematology was contacted for further recommendations for anticoagulation. He does report a history of prostate cancer and questionable bladder cancer many years ago. He does not recall treatment details entirely but states he did have radiotherapy. His a former smoker. Past Med Surg Social Fam HX - Past Medical History Medical history: asthma, cancer, DVT, hyperlipidemia, pulmonary embolus, other Psychiatric history: no psych history - Past Surgical History Surgical History: other (bladder cauterization) - Social History Smoking Status: Former smoker Smokeless Tobacco Status: No Alcohol use: none Drug use: none - Family History Mother Hx Family Cardiac Disorders: Yes (PR) Medications and Allergies Sennosides/Docusate Sodium [Senna Plus] 1 each PO BID PRN 03/16/17 [History] Acetaminophen [Tylenol] 975 mg PO Q6H PRN 09/22/17 [History] Capsaicin 0.025% [Trixaicin] 1 appl TP BID PRN 09/22/17 [History] Meclizine [Antivert] 12.5 mg PO Q6H PRN 09/22/17 [History] Rivaroxaban [Xarelto] 20 mg PO DAILY 09/22/17 [History] 3 Allergy/AdvReac Type Severity Reaction Status Date / Time codeine Allergy Hallucinati Verified 09/22/17 19:34 ng Influenza Virus Vaccines Allergy Cough Verified 09/22/17 19:34 Pneumococcal Vaccine Allergy Cough Verified 09/22/17 19:34 Constitutional: Absent: anorexia, chills, fatigue, fever(s), weakness, weight loss Eyes: Absent: change in vision Nose, mouth and throat: Absent: dysphagia Cardiovascular: Absent: chest pain, irregular heart rhythm Respiratory: Absent: cough, dyspnea Gastrointestinal: Absent: abdominal pain, hematemesis, hematochezia, melena, nausea, vomiting Additional comments: Denies hematuria, reports urinary frequency. Musculoskeletal: Present: muscle weakness Integumentary: Absent: wounds Neurological: Present: frequent falls. Absent: focal weakness Psychiatric: Absent: change in appetite Hematologic/Lymphatic: Present: as per HPI Oncology - Exam - Constitutional Vitals: Temp Pulse Resp BP Pulse Ox 98.4 F 79 15 144/81 95 09/24/17 11:38 09/24/17 11:38 09/24/17 11:38 09/24/17 11:38 09/24/17 11:38 General appearance: cooperative, no acute distress, no febrile Exam: Chronically ill-appearing - Head Head exam: Present: atraumatic - ENT ENT exam: Present: mucous membranes moist - Respiratory Respiratory exam: Present: decreased breath sounds, CTAB. Absent: respiratory distress - Cardiovascular Cardiovascular exam: Present: RRR, +S1, +S2 - GI/Abdominal GI/Abdominal exam: Present: normal bowel sounds, soft. Absent: tenderness - Extremities Exam Extremities exam: Present: calf tenderness Additional comments: mild edema to bilateral lower extremit - Neurological Exam Neurological exam: Present: alert, oriented X3, no focal deficits, strengths equal and symetr throughout - Psychiatric Psychiatric exam: Present: normal affect, normal mood - Skin Skin exam: Present: dry, intact, normal color, warm Oncology - Results Labs: Short CBC 09/24/17 Range/Units 09:45 WBC 5.9 (4.3-11.1) K/mcL Hgb 10.8 L D (12.9-16.9) g/dL Hct 33.0 L (37.5-50.1) % Plt Count 281 (140-400) K/mcL Neutrophils # 2.8 (1.6-8.9) K/mcL BMP 09/24/17 09:45 Sodium 137 Potassium 3.5 Chloride 106 Carbon Dioxide 24 BUN 18 Creatinine 0.96 Glucose 128 H Calcium 9.1 Consult Discharge Plan - Plan Referrals: [facility] [Primary Care Provider] -
--- NOTE | 2017-09-24 16:10 | Oncology Inp Progress Note ---
Date of Encounter: 09/24/17 Time of Encounter: 17:00 Oncology: Subj Interval history: Patient with a history of acute DVT, status post IVC filter 09/23/2017. A/P Patient with history of primary embolism, with acute lower extremity deep venous thrombosis, status post a filter placement due to history of bleeding, hematology consulted for anti-coagulation. The patient was on prior anti-coag ablation with Xarelto. She has had a filter placed due to bleeding hx, she may continue Xarelto at decreased dose of 10 mg daily. labs works reviewed. - Constitutional Vitals: Vital Signs Temp Pulse Resp BP Pulse Ox 09/24/17 11:38 98.4 F 79 15 144/81 95 09/24/17 08:00 97.8 F 80 16 155/80 95 09/24/17 04:56 98.1 F 09/23/17 21:55 98 09/23/17 20:03 98.7 F 70 17 160/86 98 09/23/17 18:30 68 168/78 09/23/17 17:30 65 168/80 09/23/17 17:15 67 165/86 09/23/17 17:00 68 180/90 09/23/17 16:48 72 12 162/89 99 09/23/17 16:44 98 F 72 18 162/89 99 Intake and Output 09/24/17 09/24/17 09/24/17 07:59 15:59 23:59 Intake Total 720 / 720 Output Total 500 / 500 Balance 220 / 220 Intake: Oral 720 / 720 Output: Urine 500 / 500 Other: Meal Lunch Percent of Meal Consumed 100% Stool Size Moderate Stool Consistency liquid formed Stool Color Brown Exam: GENERAL: Alert and oriented, well appearing. Mental Status: Affect appropriate for circumstances HEENT: Sclerae anicteric. Skin: No rashes or petechiae. Lymph nodes: No cervical, supraclavicular, axillary adenopathy. Lungs: Clear to auscultation and percussion bilaterally. Cardiovascular: Regular rate and rhythm. No gallops, murmurs, or rubs. Abdomen: Soft, nontender; no organomegaly or masses palpable. Extremities: + edema. [place] Neurologic: Alert, cranial nerves II-XII intact; normal gait; no focal weakness Oncology: Obj Data - Labs CBC & Chem 7: 09/24/17 09:45 09/24/17 09:45 Labs: Laboratory Results - last 24 hr 09/23/17 09/24/17 09/24/17 16:58 09:45 09:45 WBC 5.9 RBC 3.76 L Hgb 10.8 L D Hct 33.0 L MCV 87.8 MCH 28.7 MCHC 32.7 RDW 14.3 Plt Count 281 MPV 9.3 L Immature Gran % 0.2 Seg Neutrophils % 46.8 Lymphocytes % 33.4 Monocytes % 12.5 Eosinophils % 6.4 Basophils % 0.7 Neutrophils # 2.8 Lymphocytes # 2.0 Monocytes # 0.7 Eosinophils # 0.4 Basophils # 0.0 APTT 65.1 H Sodium 137 Potassium 3.5 Chloride 106 Carbon Dioxide 24 BUN 18 Creatinine 0.96 Est GFR ( Amer) > 60 Est GFR (Non-Af Amer) > 60 BUN/Creatinine Ratio 19 Glucose 128 H Calculated Osmolality 288 Calcium 9.1 - ABG Interpretation ABG results: PT/INR, D-dimer PT 13.6 Seconds (9.4-12.1) H 09/23/17 13:11 Consult Discharge Plan - Plan Referrals: [facility] [Primary Care Provider] -
--- NOTE | 2017-09-24 17:29 | Vascular/[facility] Progress Note ---
Date of Encounter: 09/24/17 Time of Encounter: 16:15 - Assessment and plan (1) On rivaroxaban therapy Current Visit: Yes Status: Acute Patient demonstrates failure of Xarleto therapy for DVT treatment with new onset left lower extremity femoral popliteal DVT. Because of the failure of anticoagulation the patient was recommended to undergo IVC filter placement. In addition it was suggested that the patient be seen by hematology for recommendations as to the preferred method of anticoagulation post-IVC filter placement. The patient was placed on IV heparin beginning last night at my recommendation. (2) Pulmonary embolism on left Current Visit: No Status: Suspected History of previous pulmonary embolism (3) Deep vein thrombosis (DVT) of left lower extremity Current Visit: Yes Status: Acute New-onset left lower extremity DVT despite ongoing Xarleto therapy. Patient is status post IVC filter placement. Patient has no complaints. He is otherwise doing well. Patient may be discharged from vascular surgery perspective. Qualifiers: Affected thrombotic vein of extremity: unspecified vein of extremity Chronicity: acute Qualified Code(s): I82.402 - Acute embolism and thrombosis of unspecified deep veins of left lower extremity - Subjective Interval history: Patient is postop day #1 from placement of IVC filter via right femoral approach. Patient has no complaints related to the right groin puncture site or in the abdomen. He states his lower extremity are feeling better and that the lower extremity edema is improving significantly since his admission. Vital Signs, Last 4 Hours Temp Pulse Resp BP Pulse Ox 09/24/17 16:39 97.9 F 78 15 150/79 98 - Physical Examination General: Present: Conversant, No Apparent Distress HEENT: Present: Atraumatic Vascular: Present: Other (Right groin puncture site is clean and dry. It is without hematoma or ecchymosis. Lower extremity evaluation reveals no edema or tenderness or cellulitis or phlegmasia.) Abdomen: Present: Soft, Non-tender. Absent: Masses Results 09/24/17 09:45 09/24/17 09:45 Lab Results, Last 24 hours 09/24/17 09/24/17 09:45 09:45 WBC 5.9 Hgb 10.8 L D Hct 33.0 L Plt Count 281 Sodium 137 Potassium 3.5 Chloride 106 Carbon Dioxide 24 BUN 18 Creatinine 0.96 Glucose 128 H Calcium 9.1 Consult Discharge Plan - Plan [facility]errals: [facility] [Primary Care Provider] -
--- NOTE | 2017-09-24 20:01 | Internal Med Progress Note ---
Date of Encounter: 09/24/17 Time of Encounter: 11:00 - Assessment and plan (1) Deep vein thrombosis (DVT) of left lower extremity Current Visit: Yes Status: Acute Assessment and plan: US Doppler in the shows left side acute DVT. Patient iwas already on anticoagulation with xarelto. 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 (3) On rivaroxaban therapy Current Visit: Yes Status: Acute Assessment and plan: Patient was started on medication due to prior PE (4) Hx of bladder cancer Current Visit: No Status: Chronic Assessment and plan: Continue outpatient follow-up (5) History of prostate cancer Current Visit: No Status: Chronic Assessment and plan: Cont outpatient follow-up (6) DVT prophylaxis Current Visit: No Status: Acute Assessment and plan: Will continue heparin drip and change to Xarelto on 09/25/17 - Time Spent With Patient Total time spent is greater than 50% in coordination of care (as documented) at patient's floor/unit and/or counseling patient: - Subjective Interval history: Status post left extremity DVT for IVC Patient resting comfortably this morning - Constitutional Vitals: Temp Pulse Resp BP Pulse Ox 97.9 F 78 15 150/79 98 09/24/17 16:39 09/24/17 16:39 09/24/17 16:39 09/24/17 16:39 09/24/17 16:39 General appearance: Present: A&O X 3, no acute distress, answers questions appropriately - Respiratory Respiratory exam: Present: CTAB. Absent: accessory muscle use, rales, rhonchi, wheezes - Cardiovascular Cardiovascular exam: Present: RRR, +S1, +S2. Absent: diastolic murmur, gallop, rubs, systolic murmur Internal Medicine: Result - Labs CBC & Chem 7: 09/24/17 09:45 09/24/17 09:45 Labs: Short CBC 09/24/17 Range/Units 09:45 WBC 5.9 (4.3-11.1) K/mcL Hgb 10.8 L D (12.9-16.9) g/dL Hct 33.0 L (37.5-50.1) % Plt Count 281 (140-400) K/mcL Neutrophils # 2.8 (1.6-8.9) K/mcL BMP 09/24/17 09:45 Sodium 137 Potassium 3.5 Chloride 106 Carbon Dioxide 24 BUN 18 Creatinine 0.96 Glucose 128 H Calcium 9.1 - ABG Interpretation ABG results: PT/INR, D-dimer PT 13.6 Seconds (9.4-12.1) H 09/23/17 13:11 Consult Discharge Plan - Plan [facility]errals: [facility] [Primary Care Provider] -
[2017-09-24] MEDS: Heparin 25,000 UNIT/500 ML D5W 25,000 UNIT/500 ML BAG IVC SCH (20:11)
[2017-09-25 01:47] LABS: Activated Partial Thrombo Time 125.4 Seconds (26.0-36.0)
[2017-09-25 01:48] LABS: Heparin anti-factor XA UFH 0.92 IU/mL (0.30-0.70)
[2017-09-25] MEDS: Acetaminophen 325 MG TABLET PO PRN (03:46)
[2017-09-25 07:59] VITALS: BP 158/86
--- NOTE | 2017-09-25 11:31 | Discharge Summary ---
- NOTES TO OUTPATIENT PROVIDER Notes to Outpatient Provider: Patient to follow up with hematology/oncology for OAC management Orders not resulted at time of discharge: Pending orders 09/25/17 16:00 PTT [Activated Partial Thrombo Time] [COAG] Timed Date of Encounter: 09/25/17 Time of Encounter: 11:00 - Discharge Diagnosis (1) Deep vein thrombosis (DVT) of left lower extremity Priority: Primary Status: Acute Qualifiers: Affected thrombotic vein of extremity: unspecified vein of extremity Chronicity: acute Qualified Code(s): I82.402 - Acute embolism and thrombosis of unspecified deep veins of left lower extremity (2) Pulmonary embolism Priority: Primary Status: Acute Qualifiers: Pulmonary embolism type: other Chronicity: chronic Acute cor pulmonale presence: without acute cor pulmonale Qualified Code(s): I27.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 At the [facility], bilateral venous Doppler was ordered and showed left side DVT. Patient said he started xarelto since 8 months ago because of "left rib cage clotting" (old record on last adm shows PE). He was transferred to our hospital for possible IVC filter because he developed DVT although on anticoagulation. During patients hospital stay vascular surgery was consult with an IVC filter was placed. Oncology was also consult with recommendations to restart Xarelto but at a lower dose at 10 mg daily. Patient will be discharged to follow up with hematology/oncology. - Time Spent with Patient Total time spent providing and/or coordinating discharge services: - Discharge Medications Prescriptions: Rivaroxaban [Xarelto] 10 mg PO DAILY #30 tablet Home Medications: Sennosides/Docusate Sodium [Senna Plus] 1 each PO BID PRN 03/16/17 [History] Acetaminophen [Tylenol] 975 mg PO Q6H PRN 09/22/17 [History] Capsaicin 0.025% [Trixaicin] 1 appl TP BID PRN 09/22/17 [History] Meclizine [Antivert] 12.5 mg PO Q6H PRN 09/22/17 [History] Rivaroxaban [Xarelto] 10 mg PO DAILY #30 tablet 09/25/17 [Rx] Allergies/Adverse Reactions: 3 Allergy/AdvReac Type Severity Reaction Status Date / Time codeine Allergy Hallucinati Verified 09/22/17 19:34 ng Influenza Virus Vaccines Allergy Cough Verified 09/22/17 19:34 Pneumococcal Vaccine Allergy Cough Verified 09/22/17 19:34 Date of admission: 09/23/17 07:46 [facility] care physician[facility] Consults: 09/23/17 15:20 Consult to Counter Supply Worker [CONS] Routine Reason for SW Consult: Help patient with passport/or any other services available to patient. Also PT/OT consulted as patient falls at home with fx rib. 09/23/17 15:22 Consult to Physical Therapy [CONS] Routine Comment: Evaluate, develop and implement POC Reason for Consult: Falls at home with fx rib. Patient lives at home alone. Questionable safe return home? Please evaluate and give recommendations. Per nursing bedrest orders today for IVC filter, however will not be tomorrow. Does patient have active BEDREST order?: Yes Is patient medically & hemodynamically stable?: Yes 09/23/17 15:25 Consult to Occupational Therapy [CONS] Routine Comment: Evaluate, develop and implement POC Reason for Consult: Falls at home with rib fx. Patient lives home alone. Questionable safe return home. Please evaluate and give recommendations. Note: Per nursing bedrest orders today for IVC filter, however won't be tomorrow. Thank you. Does patient have active BEDREST order?: Yes Is patient medically & hemodynamically stable?: Yes - Constitutional Vitals: Temp Pulse Resp BP Pulse Ox 98.1 F 83 16 158/86 97 09/25/17 07:57 09/25/17 07:57 09/25/17 07:57 09/25/17 07:57 09/25/17 07:57 General appearance: Present: A&O X 3, no acute distress, answers questions appropriately - Respiratory Respiratory exam: Present: CTAB. Absent: accessory muscle use, rales, rhonchi, wheezes - Cardiovascular Cardiovascular exam: Present: RRR, +S1, +S2. Absent: diastolic murmur, gallop, rubs, systolic murmur - Patient Status Disposition: Home, Self-Care Condition: Good - Discharge Instructions Instructions: Rivaroxaban (By mouth), Pulmonary Embolism (DC), Peripheral Vascular Disorders (DC) [facility]: [facility] [Primary Care Provider[facility] - (PLEASE CALL ON 09/27/17, AND MAKE POST [facility]OSP[facility] FOLLOW UP APPOINTMENT FOR 1-2 WEEKS AFTER DISCHARGED)
== END 2017-09-25 14:03 | disposition home or self-care (01) | DRG 253 ==
LOC: EMEROO 18:06 → 2NENU 18:06 → SUATTDRO 21:48 → 2NENU 22:05
PROVIDERS: ADMIT Internal Medicine; ATTEND Hospitalist